=== PATIENT | male | born 1990 | race Caucasian/White ===

== ENCOUNTER 2022-07-11 19:43 | Emergency (ER) | payer MEDICAID, OTHER ==
[~2022-07-11] VITALS: Ht 172.7 cm; Wt 95.0 kg
[2022-07-11] MEDS ORDERED: KETOROLAC 60MG/2ML VIAL IM STA (20:15)
[2022-07-11] MEDS ORDERED: TETANUS, DIPHTHERIA, PERTUSSIS VAC/PF 0.5ML (>10YR OLD) IM ONE (20:15)
[2022-07-11] MEDS ORDERED: AMOX1TAB16 MT (23:09)
[2022-07-11] MEDS ORDERED: IBUP-2029 MT (23:09)
[2022-07-11 23:41] VITALS: BP 127/68
== END 2022-07-12 01:21 | disposition home or self-care (01) ==
LOC: ER 19:43
DX: S02.2XXA Fracture of nasal bones, initial encounter for closed fracture (principal); S01.81XA Laceration without foreign body of other part of head, initial encounter; S10.93XA Contusion of unspecified part of neck, initial encounter; V49.9XXA Car occupant (driver) (passenger) injured in unspecified traffic accident, initial encounter; Y93.89 Activity, other specified; Y92.89 Other specified places as the place of occurrence of the external cause; Y99.8 Other external cause status
CPT/HCPCS: 12011; 70450; 70486; 71045; 72125; 90471; 90715; 96372; 99285; J1885; Z7610

== ENCOUNTER 2022-09-05 02:50 | Emergency (ER) | payer MEDICAID ==
[~2022-09-05] VITALS: Ht 175.3 cm; Wt 96.0 kg
[~2022-09-05 02:50] MED LIST: AMOX1TAB16 MT; IBUP-2029 MT
[2022-09-05 02:59] VITALS: O2SAT 98
[2022-09-05 04:31] LABS: BASOPHILS % 0.4 % (0.0-2.0); EOSINOPHILS % 0.1 % (0.0-5.0); HEMATOCRIT. 44.9 % (42.0-52.0); HEMOGLOBIN. 15.9 g/dL (14.0-18.0); LYMPHOCYTES % 13.5 % (20.0-50.0); MEAN CORPUSCULAR HEMOGLOBIN 31.8 pg (28.0-32.0); MEAN CORPUSCULAR VOLUME 89.9 fL (80.0-94.0); MEAN PLATELET VOLUME 9.3 fl (7.4-10.4); MONOCYTES % 9.5 % (2.0-8.0); NEUTROPHILS % 76.5 % (40.0-76.0); PLATELET 213 x1000/uL (130-400); RED BLOOD CELL COUNT 4.99 mill/uL (4.7-6.1); RED CELL DISTRIBUTION WIDTH 13.4 % (11.6-14.6)
[2022-09-05 04:43] LABS: CHLORIDE 104 mEq/L (98-107)
[2022-09-05 04:54] LABS: ETHANOL BLOOD 41 mg/dL (-10)
[2022-09-05 06:11] VITALS: BP 176/95; PULSE 91; RESP 18; TEMP 98.7
== END 2022-09-05 06:12 | disposition home or self-care (01) ==
LOC: ER 02:50
DX: T40.5X1A Poisoning by cocaine, accidental (unintentional), initial encounter (principal); Y92.89 Other specified places as the place of occurrence of the external cause; R00.2 Palpitations
CPT/HCPCS: 36415; 71045; 80053; 80320; 84484; 85025; 93005; 99285; G0480